=== PATIENT | male | born 1950 | race Hispanic/Latino ===

== ENCOUNTER 2020-08-01 07:29 | Observation (INO) | payer OTHER ==
[2020-07-30 14:06] LABS: BASOPHILS % (AUTO) 0.7 % (0.0-5.0); EOSINOPHILS % (AUTO) 3.5 % (0.0-8.0); HEMATOCRIT 32.5 % (42-54); LYMPHOCYTES % (AUTO) 22.2 % (21.0-51.0); MEAN CORPUSCULAR HEMOGLOBIN 30.7 pg (27.0-33.0); MEAN CORPUSCULAR HGB CONC 32.3 g/dL (32.0-36.0); MONOCYTES % (AUTO) 8.5 % (3.0-13.0); NEUTROPHILS % (AUTO) 64.7 % (40.0-77.0); PLATELET COUNT (AUTO) 207 K/uL (130-400); RED BLOOD CELL COUNT(AUTO) 3.42 MIL/uL (4.50-6.20); RED CELL DISTRIBUTION WIDTH 12.2 % (11.0-15.5); WHITE BLOOD COUNT (AUTO) 5.7 K/uL (4.8-10.8)
[2020-07-30 14:12] LABS: APPEARANCE,URINE Clear (CLEAR); BILIRUBIN,URINE Negative (NEGATIVE); COLOR,URINE Yellow (YELLOW); GLUCOSE, URINE (UA) Negative (NEGATIVE); KETONES,URINE Negative (NEGATIVE); LEUKOCYTE ESTERASE ,URINE Negative (NEGATIVE); NITRATE,URINE Negative (NEGATIVE); OCCULT BLOOD,URINE Negative (NEGATIVE); PH,URINE 5.5 (5.0-8.0); PROTEIN,URINE POS 2+ mg/dL (NEGATIVE); UROBILINOGEN,URINE 0.2 mg/dL (0.2-1.0)
[2020-07-30 14:17] LABS: CREATININE 1.8 mg/dL (0.5-1.5); POTASSIUM 4.9 mmol/L (3.5-5.1)
[2020-07-30 14:22] LABS: PARTIAL THROMBOPLASTIN TIME 24.3 SEC (26.3-35.5); PROTHROMBIN TIME 10.8 SEC (9.6-11.6)
[2020-07-30 14:33] LABS: BACTERIA,URINE None Seen /HPF (None Seen); MUCUS,URINE Few LPF (None Seen); RBC,URINE 0-1 /HPF (0-1); SQUAMOUS EPITHELIAL CELL,UR 0-2 /HPF (0-2); WBC,URINE 0-1 /HPF (0-1)
--- NOTE | 2020-07-31 14:05 | NUR ---
LABS INFORMED MARY SULLIVAN OF ABNORMAL H/H, BUN/CREA/CHEST XRAY. ORDERS RECEIVED TO HYDRATE PT ON ARRIVAL AM OF PROCEDURE WITH NS @100 ML/HR AND REPEAT BMP ON AM OF PROCEDURE.
[2020-07-31 15:21] VITALS: BP 139/61
[2020-08-01] VITALS (11 sets, daily range): BP systolic 127–148; BP diastolic 54–68
[~2020-08-01] VITALS: Ht 175.3 cm; Wt 98.6 kg
[2020-08-01 07:55] LABS: CREATININE 1.6 mg/dL (0.5-1.5)
[2020-08-01] MEDS: SODIUM CHLORIDE 0.9% 1000ML 1,000 ML IV SCH ×4 (08:00→20:04)
--- NOTE | 2020-08-01 08:45 | NUR ---
ABNORMAL LABS MARY KHAN CALLED AND NOTIFIED OF REPEAT BMP IN AM INCLUDING ABNORMAL RESULT FOR BUN AND CREATNINE. NO NEW TELEPHONE ORDERS RECEIVED. OK TO PROCEED WITH PLANNED PROCEDURE.
[2020-08-01] MEDS ORDERED: HEPARIN SODIUM 1000UNIT/ML 10ML VIAL ONE (08:57)
[2020-08-01] MEDS ORDERED: SODIUM BICARB 50MEQ 50ML VIAL 50 ML ONE (08:57)
[2020-08-01] MEDS ORDERED: NITROGLYCERIN 2 MG/VIAL VIAL IV ONE (08:57)
[2020-08-01] MEDS ORDERED: IOHEXOL-350 50ML VIAL IV ONE ×2 (08:57→10:17)
[2020-08-01] MEDS ORDERED: IOHEXOL 350 MG/ML 100ML INFUS..BTL IV ONE ×2 (08:58→10:17)
[2020-08-01] MEDS ORDERED: MIDAZOLAM HCL 1 MG/ML 2ML VIAL ONE ×2 (08:58→10:24)
[2020-08-01] MEDS ORDERED: LIDOCAINE HCL 2% 20ML ONE (08:58)
[2020-08-01] MEDS ORDERED: MEPERIDINE-PF 25 MG/ML SYG ONE ×2 (08:58→10:24)
--- NOTE | 2020-08-01 09:35 | NUR ---
PATIENT TRANSFERRED TO EMR TRAINER. IV IN PLACE AND PATENT. PATIENT STATES NO COMPLAINTS OF PAIN.
[2020-08-01] MEDS ORDERED: INSNOV SQ (10:10)
[2020-08-01] MEDS ORDERED: CYAN100099 PO (10:10)
[2020-08-01] MEDS ORDERED: METO100T14 PO (10:10)
[2020-08-01] MEDS ORDERED: AEC81 PO (10:10)
[2020-08-01] MEDS ORDERED: MULT-1367 PO (10:10)
[2020-08-01] MEDS ORDERED: FERR325T22 PO (10:10)
[2020-08-01] MEDS ORDERED: METF-446 PO (10:10)
[2020-08-01] MEDS ORDERED: ATOR40TA69 PO (10:10)
[2020-08-01] MEDS ORDERED: LISI40TA4 PO (10:10)
[2020-08-01] MEDS ORDERED: MEGA RED PO (10:10)
[2020-08-01] MEDS ORDERED: FOLI0.4T2 PO (10:10)
[2020-08-01] MEDS ORDERED: PREG100C55 PO (10:10)
[2020-08-01] MEDS ORDERED: CYCL5TAB PO (10:10)
[2020-08-01] MEDS ORDERED: OMEP20TA25 PO (10:10)
[2020-08-01] MEDS ORDERED: INSU100V12 SQ (10:10)
[2020-08-01] MEDS ORDERED: EMPA25TA PO (10:10)
[2020-08-01] MEDS ORDERED: HYDROCODONE PO (10:10)
[2020-08-01] MEDS ORDERED: CLOPIDOGREL BISULFATE 300 MG TAB ONE (10:58)
[2020-08-01] MEDS ORDERED: ASPIRIN 81MG TAB.CHEW ONE (10:58)
[2020-08-01] MEDS ORDERED: DEXTROSE 50%-WATER 50 ML DISP.SYRIN IV PRN (11:15)
[2020-08-01] MEDS ORDERED: ONDANSETRON HCL 4 MG/2 ML VIAL IVP PRN (11:15)
[2020-08-01] MEDS: INSULIN HUMULIN R 100 UNIT/ML 3ML SQ SCH ×3 (11:30→20:13)
--- NOTE | 2020-08-01 11:45 | NUR ---
TRANSFER PATIENT TRANSFERRED TO ROOM 409 FROM [facility].
[2020-08-01] MEDS: INSULIN LISPRO 100 UNIT/ML 3ML SQ SCH ×2 (12:00→17:00)
--- NOTE | 2020-08-01 12:00 | NUR ---
PT ADMISSION FROM PAINTER AND DECORATOR, PT AAO X 3 . REVIEW PLAN OF CARE AND DR , ORDERS AND FOLLOW V/S PER CATH LABS ORDER. PT IS BEDREST.CHECK HIS RT GROIN SM DRSG TO SITE , CLEAN NOTED NO REDNESS OR HEMATOMA. SOFT TO TOUCH . WARMTH TO HIS LEGS PRESENT. WITH GOOD CAPILLARIES REFILLS LESS THAN 3 SEC.. . REVIEW CALL LIGHT AND POSTOP V/S STARTED .
[2020-08-01] MEDS: FERROUS SULFATE 325 MG TABLET.DR PO SCH (20:00)
[2020-08-01] MEDS: PREGABALIN 100 MG CAPSULE PO SCH (20:00)
[2020-08-01] MEDS: METOPROLOL TARTRATE 50 MG TAB PO SCH (20:01)
[2020-08-01] MEDS: INSULIN GLARGINE 100 UNITS/ML 10 ML VIAL SQ SCH (20:11)
[2020-08-01] MEDS ORDERED: ATORVASTATIN CALCIUM 40 MG TABLET PO SCH (21:00)
[2020-08-02] MEDS ORDERED: ACETAMINOPHEN 325 MG TAB ONE (02:30)
[2020-08-02] MEDS: SODIUM CHLORIDE 0.9% 1000ML 1,000 ML IV SCH ×2 (03:55→07:49)
[2020-08-02 04:04] VITALS: BP 157/63
[2020-08-02 04:13] LABS: HEMATOCRIT 29.5 % (42-54); MEAN CORPUSCULAR HEMOGLOBIN 30.4 pg (27.0-33.0); MEAN CORPUSCULAR HGB CONC 33.2 g/dL (32.0-36.0); MEAN CORPUSCULAR VOLUME 91.6 fL (79-99); RED BLOOD CELL COUNT(AUTO) 3.22 MIL/uL (4.50-6.20); RED CELL DISTRIBUTION WIDTH 12.1 % (11.0-15.5); WHITE BLOOD COUNT (AUTO) 5.9 K/uL (4.8-10.8)
[2020-08-02 04:20] LABS: CREATININE 1.4 mg/dL (0.5-1.5); POTASSIUM 3.7 mmol/L (3.5-5.1)
[2020-08-02] MEDS: INSULIN HUMULIN R 100 UNIT/ML 3ML SQ SCH (06:17)
[2020-08-02] MEDS ORDERED: CLOP75TA32 PO (07:12)
[2020-08-02] MEDS: INSULIN LISPRO 100 UNIT/ML 3ML SQ SCH (07:56)
[2020-08-02 08:05] VITALS: BP 142/71
[2020-08-02] MEDS: METOPROLOL TARTRATE 50 MG TAB PO SCH (08:43)
[2020-08-02] MEDS: FERROUS SULFATE 325 MG TABLET.DR PO SCH (08:44)
[2020-08-02] MEDS: PREGABALIN 100 MG CAPSULE PO SCH (08:57)
[2020-08-02] MEDS ORDERED: MEGA RED PO SCH (09:00)
[2020-08-02] MEDS ORDERED: PANTOPRAZOLE SODIUM 40 MG TABLET.DR PO SCH (09:00)
[2020-08-02] MEDS ORDERED: LISINOPRIL 40 MG TABLET PO SCH (09:00)
[2020-08-02] MEDS ORDERED: CLOPIDOGREL BISULFATE 75 MG TAB PO SCH (09:00)
[2020-08-02] MEDS ORDERED: ASPIRIN 81 MG EC TAB PO SCH (09:00)
[2020-08-02] MEDS ORDERED: CYANOCOBALAMIN (VITAMIN B-12) 1,000 MCG TABLET PO SCH (09:00)
[2020-08-02] MEDS ORDERED: MULTIVITAMIN TABLET PO SCH (09:00)
[2020-08-02] MEDS ORDERED: **HM** JARDIANCE 25MG PO SCH (09:00)
[2020-08-02] MEDS ORDERED: FOLIC ACID 1 MG TABLET PO SCH (09:00)
[2020-08-02] MEDS: INSULIN GLARGINE 100 UNITS/ML 10 ML VIAL SQ SCH (09:04)
== END 2020-08-02 12:15 | disposition home or self-care (01) ==
LOC: DAH 07:29 → DAHIP 07:30 → 4BH 12:00
PROVIDERS: ADMIT Internal Medicine; ATTEND Internal Medicine
DX: I25.119 Atherosclerotic heart disease of native coronary artery with unspecified angina pectoris (principal); I25.5 Ischemic cardiomyopathy; I13.0 Hypertensive heart and chronic kidney disease with heart failure and stage 1 through stage 4 chronic kidney disease, or unspecified chronic kidney disease; E11.22 Type 2 diabetes mellitus with diabetic chronic kidney disease; I50.40 Unspecified combined systolic (congestive) and diastolic (congestive) heart failure; N18.9 Chronic kidney disease, unspecified; E78.5 Hyperlipidemia, unspecified; Z95.1 Presence of aortocoronary bypass graft; Z79.4 Long term (current) use of insulin; Z79.82 Long term (current) use of aspirin; Z79.899 Other long term (current) drug therapy
CPT/HCPCS: 36415 ×3; 71045; 80048 ×3; 81001; 82948 ×4; 83880; 85025; 85027; 85610; 85730; 93005; 93459; 96360; 96361 ×2; 96372 ×2; A4215; A4216; A4221; A4222; A4223 ×3; A4606; A4663; C1725; C1760; C1769; C1874; C1887 ×2; C1894; C9604; G0378 ×25; J1644 ×2; J1815 ×2; J2175 ×2; J2250 ×2; J3490 ×3; J7030 ×2; Q9965; Q9967 ×2; 99156; 99157

== ENCOUNTER → 2022-01-28 | Outpatient (CLI) | payer OTHER ==
[~2022-01-28] VITALS: Ht 172.7 cm; Wt 93.4 kg
[~2022-01-28] MED LIST: 0.9% NACL 500ML IV.SOLN 500 ML IV SCH; AEC81 PO; ATOR40TA69 PO; CINNAMON PO; CLOP75TA32 PO; CYAN100099 PO; EMPA25TA PO; FERR325T22 PO; FOLI0.4T6 PO; FURO20TA4 PO; HYDR-4153 PO; INSNOV SQ; INSU100C6 SQ; INSU100V12 SQ; KRIL500C PO; LABE200T5 PO; LISI40TA9 PO; MEGA RED PO; METF-446 PO; METO100T14 PO; MULT-1203 PO; MULT-1367 PO; OMEP20CA12 PO; PREG100C55 PO; ROPI0.257 PO
[2022-01-28 09:11] LABS: BASOPHILS % (AUTO) 0.6 % (0.0-5.0); EOSINOPHILS % (AUTO) 2.8 % (0.0-8.0); LYMPHOCYTES % (AUTO) 23.9 % (21.0-51.0); MEAN CORPUSCULAR HEMOGLOBIN 31.1 pg (27.0-33.0); MONOCYTES % (AUTO) 10.9 % (3.0-13.0); NEUTROPHILS % (AUTO) 61.6 % (40.0-77.0); PLATELET COUNT (AUTO) 217 K/uL (130-400); RED BLOOD CELL COUNT(AUTO) 3.51 MIL/uL (4.50-6.20); RED CELL DISTRIBUTION WIDTH 13.2 % (11.0-15.5); WHITE BLOOD COUNT (AUTO) 6.5 K/uL (4.8-10.8)
[2022-01-28 09:30] LABS: INR 1.02 (0.85-1.15); PROTHROMBIN TIME 11.1 SEC (9.6-11.6)
[2022-01-28 09:32] LABS: PARTIAL THROMBOPLASTIN TIME 24.9 SEC (26.3-35.5)
[2022-01-28 09:35] LABS: CREATININE 2.7 mg/dL (0.5-1.5); POTASSIUM 4.2 mmol/L (3.5-5.1)
[2022-01-28 09:43] LABS: APPEARANCE,URINE CLEAR (CLEAR); BILIRUBIN,URINE NEGATIVE (NEGATIVE); COLOR,URINE YELLOW (YELLOW); GLUCOSE, URINE (UA) 100 mg/dL (NEGATIVE); KETONES,URINE NEGATIVE (NEGATIVE); LEUKOCYTE ESTERASE ,URINE NEGATIVE (NEGATIVE); NITRATE,URINE NEGATIVE (NEGATIVE); OCCULT BLOOD,URINE NEGATIVE (NEGATIVE); PROTEIN,URINE >=300 mg/dL (NEGATIVE); UROBILINOGEN,URINE 0.2 mg/dL (0.2-1.0)
[2022-01-28 09:44] LABS: B-TYPE NATRIURETIC PEPTIDE 189 pg/mL (0-100)
[2022-01-28 09:49] LABS: BACTERIA,URINE Rare /HPF (None Seen); RBC,URINE 0-1 /HPF (0-1); SQUAMOUS EPITHELIAL CELL,UR Rare /HPF (0-2); WBC,URINE 0-1 /HPF (0-1)
== END | disposition home or self-care (01) ==
LOC: EDSTATUS 08:00 → DAH 10:00
PROVIDERS: ATTEND Internal Medicine Cardiovascular Disease
DX: Z01.810 Encounter for preprocedural cardiovascular examination (principal); I25.119 Atherosclerotic heart disease of native coronary artery with unspecified angina pectoris; Z79.01 Long term (current) use of anticoagulants
CPT/HCPCS: 36415; 71045; 80048; 81001; 83880; 85025; 85610; 85730; 93005